=== PATIENT | female | born 1950 | race African-American/Black ===

== ENCOUNTER 2016-05-27 02:50 | Emergency (ER) | payer BC, OTHER ==
--- NOTE | ~2016-05-27 | EKG ---
PATIENT: RILEY SANTOYO UNIT #: [id number] Ventricular Rate: 56 BPM Atrial Rate: 56 BPM P-R Interval: 240 ms QRS Duration: 126 ms Q-T Interval: 428 ms QTC Calculation(Bezet): 413 ms P [place]: 17 degrees Calculated R [place]: 23 degrees Calculated T [place]: 5 degrees Diagnosis Line: Sinus bradycardia with 1st degree A-V block Diagnosis Line: Right bundle branch block with repolarization Diagnosis Line: abnormality Diagnosis Line: Abnormal ECG Diagnosis Line: No previous ECGs available Diagnosis Line: Confirmed by CONNIE REDMAN MD ([id number]) on 05/29/2016 Diagnosis Line: 10:49:36 PM INTERPRETING MD: ЮЛИЯ MORALES
--- NOTE | ~2016-05-27 | CT2 ---
[facility] A Service of [facility] RADIOLOGY TEXT RESULTS PATIENT: RILEY SANTOYO LOCATION: [facility] : 48 UNIT #: [id number] AGE: [address]: Kati Yadav SEX: F ORDER DR: [id number] [facility] [address] [facility]. [place], [place] [address] [id number] MR#: [id number] Acc #: [id number] NAME: RILEY SANTOYO : 1950 SEX: F STUDY DATE/TIME: 05/27/2016 4:01 UNIT: [facility] ROOM: STUDY DESCRIPTION: CT Abd and Pelv W Cont Attending Physician: Kati Yadav Pa-C Ordering Physician: Kati Yadav Pa-C Primary Care Physician: No Primary Care Physician MEDICAL IMAGING REPORT This report is preliminary unless electronic signature is present EXAM Abdomen and pelvis CT with contrast. DATE OF EXAM 05/27/2016 INDICATION 66-year-old female with stomach pain, abdominal pain left upper quadrant, nausea and vomiting symptoms 2-3 days. Symptoms worsening today. TECHNIQUE Contrast-enhanced abdomen and pelvis CT performed. NOTE: This CT exam was performed with one or more of the following radiation dose reduction techniques: automatic exposure control, adjustment of mA and/or kV according to patient size, and iterative reconstruction. COMPARISON No comparisons. FINDINGS CT ABDOMEN: Included lung bases demonstrate scattered areas of atelectasis and scarring. No effusion. Aorta demonstrates no aneurysm or dissection. Spleen, adrenal glands, pancreas and gallbladder unremarkable. There is fatty infiltration of the liver. Kidneys demonstrate atrophy, but no acute inflammatory change. There is an incidental tiny cyst in the left kidney. CT PELVIS: Bladder unremarkable. No drainable fluid collection in the pelvis or adnexal mass. There is intermittent diverticulosis. Moderate stool burden in the colon. Appendix normal. Inguinal canals unremarkable. There is no suspicious bone lesion. Minimal retrograde listhesis of L5, grade 1 in degree. [facility] A Service of [facility] RADIOLOGY TEXT RESULTS PATIENT: RILEY SANTOYO LOCATION: [facility] : 48 UNIT #: [id number] AGE: [address]: Kati Yadav SEX: F ORDER DR: IMPRESSION 1. Negative contrast-enhanced abdomen and pelvis CT. The appendix is normal. No bowel obstruction, drainable fluid collection or focal area of inflammatory change. 2. There is incidental diverticulosis and fatty infiltration of the liver. 3. Incidental left renal cyst. Dictated by... Robson Pineda M.D. THIS IS AN ELECTRONICALLY VERIFIED REPORT Robson Pineda M.D. at 05/27/2016 10:13 PM Lily TD: 05/27/2016 15:16 JOB #: [id number] MEDICAL IMAGING REPORT Page 1 of 1 COPY
[2016-05-27 02:45] LABS: URINE SOURCE CLEAN CATCH
[2016-05-27 02:48] LABS: POC - CKMB <1.0 ng/mL (0.0-7.9); POC - TROPONIN <0.05 ng/mL (<=0.05)
[2016-05-27 02:49] LABS: BASOPHIL% 0.6 % (0-2.5); EOSINOPHIL# 0.2 X10e3 (0-0.7); EOSINOPHIL% 2.1 % (0.0-7.0); HEMATOCRIT 40.9 % (35.0-45.0); HEMOGLOBIN 13.6 gm/dL (12.0-16.0); LYMPHOCYTE# 2.7 X10e3 (1.0-3.5); LYMPHOCYTE% 37.7 % (17.0-45.0); MEAN CELL VOLUME 87.6 FL (83-96); MEAN CORPUSCULAR HEMOGLOBIN 29.1 PG (28-34); MEAN CORPUSCULAR HGB CONC 33.2 g/dL (30-36); MEAN PLATELET VOLUME 7.7 FL (6.5-11.5); MONOCYTE# 0.7 X10e3 (0-1.0); MONOCYTE% 10.2 % (3.0-12.0); NEUTROPHIL# 3.6 X10e3 (1.5-7.1); NEUTROPHIL% 49.4 % (40-75); PLATELET COUNT 267 X10e3 (140-420); RED BLOOD COUNT 4.66 X10e (3.90-5.30); RED CELL DISTRIBUTION WIDTH 13.9 % (11.0-15.5); WHITE BLOOD COUNT 7.3 X10e3 (4.0-10.5)
[2016-05-27 02:51] LABS: URINE APPEARANCE CLEAR; URINE BILIRUBIN NEG (NEG); URINE BLOOD 1+ (NEG); URINE COLOR YELLOW; URINE GLUCOSE NEG (NEG); URINE KETONE NEG (NEG); URINE LEUKOCYTE ESTERASE NEG (NEG); URINE NITRATE NEG (NEG); URINE PROTEIN NEG (NEG); URINE SPECIFIC GRAVITY 1.006 (1.003-1.035); URINE UROBILINOGEN 0.2 MG/DL (NEG)
[2016-05-27 02:53] LABS: DIFF IND NO
[2016-05-27 02:54] LABS: URINE BACTERIA AUWI NEG (NEGATIVE); URINE SQUAMOUS EPITHELIAL CELL NONE SEEN /[HPF]; UWBCS1 AUWI 0-2 (0-5)
[2016-05-27 02:56] LABS: CULTURE INDICATED? NO
[2016-05-27 03:13] LABS: ALBUMIN SERUM 3.9 g/dL (3.5-5.0); BILIRUBIN,TOTAL 0.2 mg/dL (0.2-2.0); BUN/CREATININE RATIO 28.57; CALCIUM SERUM 9.4 mg/dL (8.4-10.2); CREATININE SERUM 0.7 mg/dL (0.6-1.4); GLOM FILT RATE Estimated 103.2 mL/min (>60); POTASSIUM 3.8 mmol/L (3.5-5.1); PROTEIN TOTAL SERUM 7.2 g/dL (6.0-8.3)
[2016-05-27 03:14] LABS: BILIRUBIN, DIRECT 0.1 mg/dL (0.0-0.2); BILIRUBIN,INDIRECT 0.1 mg/dL (0.0-0.9)
== END 2016-05-27 05:15 | disposition home or self-care (01) ==
LOC: CED 02:50
PROVIDERS: Physician Assistant Medical
DX: R10.13 Epigastric pain (principal); Z98.890 Other specified postprocedural states
CPT/HCPCS: 36415; 74177; 80048; 80076; 81003; 82150; 82553; 83690; 84484; 85025; 93005; 99284; Q9967

== ENCOUNTER 2016-06-24 17:49 | Inpatient (IN) | payer MEDICAID ==
--- NOTE | ~2016-06-24 | DS ---
Unit #: [id number] #: [id number] Patient: RILEY MAJOR [id number] [address] [place], [place] [address] [id number] I MR#: [id number] NAME: RILEY MAJOR ROOM: 56 Age: 66 Sex: F Admission Date: 06/24/2016 : 1950 Discharge Date: 06/27/2016 Attending Physician: Fiona Hawthorne M.D. Primary Care Physician: No Primary Care Physician DISCHARGE SUMMARY PRINCIPAL DIAGNOSES 1. Hemoptysis likely secondary to #2. 2. Acute bronchitis with Gram-positive cocci. Culture is currently pending. 3. Mild protein malnutrition. 4. Hyperglycemia with normal hemoglobin A1C of 5.5. 5. Abnormal thoracic and spine sternal lesions with pending workup. 6. History of positive PPD. 7. Adjustment disorder. CONSULTANTS 1. Dr. Kang, pulmonology. 2. Dr. De, oncology. 3. Dr. Dumont, psychiatry. PROCEDURES 1. Bronchoscopy on June 26, 2016 with no evidence of endobronchial lesion. No evidence of mass. Sputum is currently growing Gram-positive cocci. 2. Chest x-ray on June 24, 2016 with moderate lung volumes. A 1.8 cm calcific density in the left lower neck noted. 3. CT angiogram of the chest on June 24, 2016 which is negative for pulmonary embolism. Moderate cardiomegaly noted. Lucent lesions within the thoracic spine and sternum. 4. Two-dimensional echocardiogram on June 25, 2016 with ejection fraction of 55% to 60%. Grade 1 diastolic dysfunction noted. Mild mitral regurgitation noted. Normal right ventricular systolic pressure. CLINICAL HISTORY AND HOSPITAL COURSE Ms. Major is a nice 66-year-old female who speaks Kyrgyz, who presents to the emergency department after a single episode of hemoptysis. Please refer to H and P for further details. CT scan of the chest did not reveal any PE, nor did it reveal any infiltrate. There is also some concern that patient was expressing suicidality in the emergency department via the park maintenance technician and she was subsequently admitted. In regard to the patient's hemoptysis, she has had no further episodes during hospitalization. Dr. Kang was consulted and patient underwent bronchoscopy which was essentially negative. Gram stain from bronchoscopy is currently growing Gram-positive cocci in pairs and chains and thus I am going to treat her with five days of Omnicef. I will follow up this culture following discharge. Unit #: [id number] #: [id number] Patient: NATANAELRILEY In regard to the patient's suicidal ideation, Dr. Dumont was consulted. Patient briefly had a sitter however she denies she was ever suicidal. She [place]. She denies any significant depression and definitely denies any suicidality. Sitter has been discontinued and she will be continued on medications for a short term. CT scan revealed questionable lesions of the spine. Dr. De was consulted. [place] and lambda light chain evaluation is currently pending. I will follow up this as an outpatient as well. However it is not felt that patient has underlying metastatic disease or multiple myeloma. This has all been discussed with the patient who expressed her understanding and she will be discharged home later today. DISCHARGE CONDITION Stable. DISCHARGE STATUS Discharge to home. DISCHARGE MEDICATIONS 1. Celexa 20 mg p.o. daily with one refill. 2. Trazodone 50 mg q.h.s. for one month. 3. Omnicef 200 mg one b.i.d. for five days. DISCHARGE INSTRUCTIONS 1. Patient was instructed to follow a heart healthy diet. 2. She can increase her activity as tolerated. FOLLOWUP Patient will follow up with her primary care provider in approximately one month. Time spent on discharge, 32 minutes. Dictated by... Fiona Hawthorne M.D. Crow/criss TD: 06/27/2016 20:14 JOB #: [id number] Unit #: [id number] #: [id number] Patient: NATANAELRILEY DISCHARGE SUMMARY Page 1 of 1 X Fiona Hawthorne MD X DISCHARGE SUMMARY
--- NOTE | ~2016-06-24 | OR ---
Unit #: [id number] #: [id number] Patient: RILEY SANTOYO [id number] [address] [address] [id number] I MR#: [id number] NAME: RILEY SANTOYO ROOM: 563 Date of Procedure: Admission Date: 06/24/2016 Surgeon: Fani Kang M.D. : 1950 Attending Physician: Fiona Hawthorne M.D. Primary Care Physician: No Primary Care Physician PROCEDURE OPERATIVE NOTE PROCEDURE PERFORMED Diagnostic bronchoscopy. INDICATIONS Hemoptysis. PREPROCEDURE DIAGNOSIS Hemoptysis. POSTPROCEDURE DIAGNOSIS Pneumonia. DETAIL OF PROCEDURE After taking consent from the patient explaining risks and benefits, patient placed in a proper position. Bronchoscope introduced through the oral cavity. Vocal cords appeared to be symmetrically moving toward the midline. Trachea was normal. Raine was sharp. We examined right upper, right middle, right lower lobe, left upper lobe, lingula, and left lower lobe. No endobronchial lesions were found. There were thick mucoid secretions in both lungs which were therapeutically suctioned. Then, we did a bronchoalveolar lavage in the right lower lobe area with 100 mL saline in and 20 mL back. Patient tolerated procedure very well. No complications happened. Dictated by... Lincoln Multani TD: 06/27/2016 12:46 JOB #: [id number] Unit #: [id number] #: [id number] Patient: RILEY SANTOYO PROCEDURE OPERATIVE NOTE Page 1 of 1 X Fani Kang MD PROCEDURE OPERATIVE NOTE
--- NOTE | ~2016-06-24 | CT16 ---
[facility] A Service of [facility] RADIOLOGY TEXT RESULTS PATIENT: RILEY SANTOYO LOCATION: [place] [address] : [birth year] UNIT #: [id number] AGE: [address]: Jose Eduardo Hill MD SEX: F ORDER DR: [id number] [facility] [address] [facility]. [place], [place] [address] [id number] I MR#: [id number] Acc #: [id number] NAME: RILEY SANTOYO : 1950 SEX: F STUDY DATE/TIME: 06/24/2016 19:11 UNIT: CEDOF ROOM: 16738 STUDY DESCRIPTION: CT Angio Chest for PE Attending Physician: Marisol Dickey M.D. Ordering Physician: Chandra Keita D.O. Primary Care Physician: No Primary Care Physician MEDICAL IMAGING REPORT This report is preliminary unless electronic signature is present EXAM CT chest, PE protocol. HISTORY Shortness of air, cough, hemoptysis this morning. TECHNIQUE NOTE: This CT exam was performed with one or more of the following radiation dose reduction techniques: automatic exposure control, adjustment of mA and/or kV according to patient size, and iterative reconstruction. FINDINGS Axial images performed through the chest following IV contrast. 3-D coronal and sagittal reconstructed images reviewed at a workstation. Pulmonary parenchyma unremarkable. No effusions. No evidence of pulmonary embolus. Mild cardiomegaly. Minimal pericardial effusion. No significant adenopathy. There is an apparent persistent left superior vena cava. Aorta is upper limits of normal. Upper abdomen unremarkable. Thoracic inlet remarkable for left thyroid calcifications. These represent dense benign type calcifications and may represent calcified adenoma. There are multiple lucent lesions within the thoracic spine, possibly within the sternum, could represent metastatic disease or myeloma. IMPRESSION 1. No acute intrathoracic abnormality identified. No evidence of pulmonary embolus. 2. Moderate cardiomegaly with a minimal pericardial effusion. 3. Several lucent lesions within the thoracic spine and also within the sternum, nonspecific, but does raise a concern for either metastatic disease or myeloma. Further medical evaluation workup may be warranted. [facility] A Service of [facility] RADIOLOGY TEXT RESULTS PATIENT: RILEY SANTOYO LOCATION: [facility] 563-01 : 46 UNIT #: [id number] AGE: [address]: Jose Eduardo Hill MD SEX: F ORDER DR: 4. Dense calcifications within the left lobe of the thyroid gland most compatible with a benign process. 5. Persistent left superior vena cava. Normal anatomic variant. Dictated by... Armando Cole M.D. THIS IS AN ELECTRONICALLY VERIFIED REPORT Armando Cole M.D. at 06/25/2016 2:05 PM Marivel TD: 06/24/2016 21:46 JOB #: [id number] MEDICAL IMAGING REPORT Page 1 of 1 COPY
--- NOTE | ~2016-06-24 | HP ---
Unit #: [id number] #: [id number] Patient: RILEY SANTOYO [id number] [place] [address] [facility]. [place], [place] [address] [id number] I MR#: [id number] NAME: RILEY SANTOYO ROOM: [facility] Age: 66 Sex: F Admission Date: 06/24/2016 : 1950 Attending Physician: Jose Eduardo Hill M.D. Primary Care Physician: Primary Care Physician No HISTORY AND PHYSICAL CHIEF COMPLAINT Hemoptysis. HISTORY OF PRESENT ILLNESS This is a 66-year-old female, from [place]. She came to the [facility] in November of last year. She has an unremarkable past medical history. She does not speak Salvadorean. History is obtained through the spanish interpreter/translator. She came to the emergency room with the chief complaint of having blood in the sputum, spitting up blood which happened today for the first time, amount was moderate and she came to the emergency room. On workup she has abnormal D-dimer. She underwent CT chest with PE protocol which was negative for PE but shows moderate cardiomegaly, minimal pericardial effusion, and there are several lesions in the spine and sternum concerning for metastasis disease vs myeloma. She is telling me that she feels depressed. She thinks that she has nobody to take care of her she does not deserve to live more, that is why she gave command to the spanish interpreter/translator. She says she loss of appetite, she has loss of weight but she does not know how much she weighed in the last six months. She is a very poor historian, also. Besides that she denies chest pain. She denies cough. She denied sweats, nausea, vomiting, abdominal pain, or any other complaint. PAST MEDICAL HISTORY Unremarkable. FAMILY HISTORY Positive TB test which was treated. SOCIAL HISTORY She said she use to smoke half to one pack daily. She smoked for ten years which she quit ten years ago. She denies alcohol. She denies illicit drug use. PAST SURGICAL HISTORY No surgical history. ALLERGIES No known drug allergies. HOME MEDICATIONS She does not take any medication at home. REVIEW OF SYSTEMS Negative except for history of present illness. Unit #: [id number] #: [id number] Patient: RILEY SANTOYO PHYSICAL EXAMINATION GENERAL: Middle-aged female lying in the bed comfortably, currently not in any distress. She is alert, awake, and oriented x3, comfortable, not in any distress. VITAL SIGNS: Current vitals are the following, temperature 98.5, heart rate 75, respiratory rate 12, and blood pressure 134/66, and oxygen 94% on room air. HEENT EXAMINATION: Eyes: Pupils equal reactive to light and accommodation. Head: Normocephalic and atraumatic. NECK: Supple. No jugular venous distention. HEART: S1 and S2, regular rate and rhythm. ABDOMEN: Soft, nontender, and nondistended. Bowel sounds are positive. EXTREMITIES: Inspection normal. No cyanosis, no clubbing, and no edema. NEUROLOGIC: No focal neurologic deficit. DIAGNOSTIC STUDIES LABORATORY: Laboratory workup is the following, her CBC shows white count 7, hemoglobin 14, hematocrit 42, platelets 245. INR is 1. BMP, sodium 140, potassium 3.7, chloride 108, glucose 22, BUN 123, creatinine 0.9, LFT within normal limits. Acetaminophen is less than 10, salicylate is less than 4, alcohol less than 5. D-dimer 551. Urine toxicology is negative. Troponin less than 0.05, troponin less than 0.05. IMAGING: Chest x-ray shows no infiltrate, no effusion, 1.8 cm calcified density, project overlying the lower left neck, could represent calcified thyroid lesions. CT chest, PE protocol, negative for pulmonary embolism, moderate cardiomegaly, minimal pericardial effusion, several lesions in thoracic spine and sternum. CARDIOVASCULAR: EKG shows right bundle branch block. ASSESSMENT/PLAN 1. Hemoptysis, will admit the patient and monitor and will ask pulmonary to evaluate. 2. Suicidal ideation, will keep the patient on one-to-one for 72 hour hold, ask psychiatry, Dr. Dumont to evaluate. 3. Abnormal D-dimer, negative CT chest PE protocol. 4. Moderate cardiomegaly/minimal pericardial effusion, will do the 2D echocardiogram. 5. Several lesions in the thoracic spine and sternum concerning for metastatic disease vs myeloma, ask oncology to evaluate. 6. History of positive PPD which was treated in the past. 7. DVT prophylaxis will place the patient on SCDs. Dictated by Lincoln Felton/yana TD: 06/25/2016 07:50 JOB #: [id number] Unit #: [id number] #: [id number] Patient: RILEY SANTOYO HISTORY AND PHYSICAL Page 1 of 1 X X HISTORY AND PHYSICAL
--- NOTE | ~2016-06-24 | CO ---
Unit #: [id number] #: [id number] Patient: RILEY SANTOYO [id number] [address] [address] [id number] I MR#: [id number] NAME: RILEY SANTOYO ROOM: 563 Age: 66 Sex: F Admission Date: 06/24/2016 : 1950 Attending Physician: Fiona Hawthorne M.D. Primary Care Physician: Primary Care Physician No Consultation Date: 06/27/2016 CONSULTATION REPORT REASON FOR CONSULTATION Followup. DISCUSSION Ms. Vences is a 66-year-old female, seen in room 563, bed 1 on 06/27/2016 at [facility]. The patient was pleasant and cooperative, interviewed with the help of ward nurse phone. The patient denied any complaint. Reports medication helping her. REVIEW OF SYSTEMS Complete review of systems is unremarkable. MENTAL STATUS EXAMINATION General appearance, the patient dressed casually. Attention span and concentration, fair. Speech, regular rate. Oriented in place. Mood and affect, labile. Thought process, coherent. Thought content, denied any thoughts of harming self or others. Denied any psychotic symptom. Recent and remote memory, fair. Language, fair. Fund of knowledge, fair. Insight and judgment, fair. DIAGNOSES Psychiatric: Major depressive disorder, recurrent, F33.2. Secondary diagnosis: Deferred. ASSESSMENT/PLAN 1. Supportive psychotherapy and psychoeducation provided to the patient. 2. Advised to continue with current medication. If needed, consider further adjustment of medication. Recommending at this time to discontinue sitter and 72-hour hold at this time. Dictated by... Lincoln Montero/andre TD: 06/28/2016 01:20 JOB #: [id number] Unit #: [id number] #: [id number] Patient: RILEY SANTOYO CONSULTATION REPORT Page 1 of 1 X Skip Dumont MD CONSULTATION REPORT
--- NOTE | ~2016-06-24 | CO ---
Unit #: [id number] #: [id number] Patient: RILEY SANTOYO [id number] [address] [place], [place] [address] [id number] I MR#: [id number] NAME: RILEY SANTOYO ROOM: 3 Age: 66 Sex: F Admission Date: 06/24/2016 : 1950 Attending Physician: Jose Eduardo Hill M.D. Primary Care Physician: Primary Care Physician No CONSULTATION REPORT REASON FOR CONSULTATION Cough and hemoptysis. CHIEF COMPLAINT Shortness of breath. HISTORY OF PRESENT ILLNESS The patient presented to the emergency room with complaint of one day of cough, shortness of breath, with hemoptysis, denies any headache, blurry vision, or chest pain. PAST MEDICAL HISTORY Tuberculosis, treated in the past. SOCIAL HISTORY Nonsmoker and no alcohol or drug abuse. FAMILY HISTORY None as per record. PHYSICAL EXAMINATION VITAL SIGNS: Temperature 98, pulse 87, respiration 12, and blood pressure 137/80. NEUROLOGIC: Awake, alert, and oriented. No neurologic deficit. HEENT: PERRLA. NECK: Supple. No jugular venous distention. CHEST: Bilateral air entry. Bilateral mild rhonchi. GI: Nontender. Soft. Bowel sounds are positive. EXTREMITIES: No edema. DIAGNOSTIC STUDIES Labs and imaging has been reviewed. MEDICATIONS As per MAR, has been reviewed. ASSESSMENT AND PLAN 1. Hemoptysis. 2. History of tuberculosis. 3. Questionable metastatic spine lesions. Plan is to admit the patient and continue IV antibiotics, oxygen, bronchodilator, and will need bronchoscopy, order sputum for AFB, and sputum cultures and sensitivity. Continue IV antibiotics. Please see Unit #: [id number] #: [id number] Patient: RILEY SANTOYO orders for treatment and plan. Thank you very much for this consultation. Dictated by... Lincoln Multani TD: 06/25/2016 09:16 JOB #: [id number] CONSULTATION REPORT Page 1 of 1 X Fani Kang MD X CONSULTATION REPORT
--- NOTE | ~2016-06-24 | CO ---
Unit #: [id number] #: [id number] Patient: VANGIE MAJOR [id number] [facility] [address] [facility]. [place], [place] [address] [id number] MR#: [id number] NAME: VANGIE MAJOR ROOM: 563 Age: 66 Sex: F Admission Date: 06/24/2016 : 1950 Attending Physician: Fiona Hawthorne M.D. Primary Care Physician: No Primary Care Physician Consultation Date: 06/25/2016 CONSULTATION REPORT REASON FOR CONSULTATION Depression, suicidal ideation. HISTORY OF PRESENT ILLNESS Ms. Vangie Major is a 66-year-old -[place] female seen in room 563, bed 1, at [facility] on 06/25/2016. The patient had a sitter. The patient was in isolation due to possible diagnosis of tuberculosis. The patient speaks language of Khmer. The patient was interviewed with the help of an senior asp net developer. The patient was pleasant and cooperative during the interview. Patient reported she made comments about harming herself but able to contract for safety. The patient reported feeling sad, depressed, lives with her friends. Denied any use of drugs or alcohol. Patient denied taking any medications for depression. Patient was able to contact for safety. At this time denied any psychotic symptoms but admitted feeling sad, depressed, anxious for a long period of time. Patient denied any history of previous (1) . PAST PSYCHIATRIC HISTORY Unremarkable for any previous treatment. MEDICAL HISTORY Medical history is remarkable for a possible tuberculosis and moderate cardiomegaly, pericardial effusion. MEDICATIONS Please refer to MAR. FAMILY HISTORY AND SOCIAL HISTORY The patient lives with a friend and no history of any abuse. No history of any substance abuse. REVIEW OF SYSTEMS Complete review of systems is remarkable for spitting blood, anxiety and depression. MENTAL STATUS EXAMINATION VITAL SIGNS: 97.8, 62, 18, 116/31, on saturation 99% GENERAL APPEARANCE: The patient is dressed in hospital attire. Cooperative. ATTENTION SPAN AND CONCENTRATION: Fair. SPEECH: Was a regular rate. Oriented to time, place and person. MOOD AND AFFECT: Sad and dysphoric. Unit #: [id number] #: [id number] Patient: VANGIE MAJOR THOUGHT PROCESS: Coherent. THOUGHT CONTENT: Patient denied any thoughts of harming self or other but reported making comments of feeling sad and depressed. Denied any psychotic symptoms. RECENT AND REMOTE MEMORY: Fair. LANGUAGE: Intact. FUND OF KNOWLEDGE: Fair. INSIGHT AND JUDGMENT: Fair to slightly impaired. DIAGNOSTIC STUDIES Psychiatric: Major depressive disorder, recurrent, F33.2. Secondary diagnosis: Deferred. Medical diagnosis: Please refer to H and P. Stressors: Psychosocial stressor. ASSESSMENT AND PLAN 1. Supportive psychotherapy and psychoeducation provided to the patient. 2. Educated about benefits and side effects of medication and course and prognosis advised. 3. Advised to start patient on Celexa 20 mg daily and trazodone 50 mg at bedtime for sleep. (2) depression. We will continue to follow. Please feel free to call if any questions, telephone [phone]. 1. Dictated by... Lincoln Montero/delaney TD: 06/27/2016 08:09 JOB #: [id number] CONSULTATION REPORT Page 1 of 1 X Skip Dumont MD X CONSULTATION REPORT
--- NOTE | ~2016-06-24 | EKG ---
PATIENT: RILEY SANTOYO UNIT #: [id number] Ventricular Rate: 72 BPM Atrial Rate: 72 BPM QRS Duration: 142 ms Q-T Interval: 408 ms QTC Calculation(Bezet): 446 ms Calculated R [place]: 29 degrees Calculated T [place]: 11 degrees Diagnosis Line: Sinus rhythm with first degree AV block Diagnosis Line: Right bundle branch block Diagnosis Line: Abnormal ECG Diagnosis Line: When compared with ECG of 27-MAY-2016 02:35, Diagnosis Line: [place] interval has prolonged significantly Diagnosis Line: Confirmed by CELESTINO TONY MD ([id number]) on Diagnosis Line: 06/25/2016 7:07:10 AM INTERPRETING MD: BHUPINDER
--- NOTE | ~2016-06-24 | CO ---
Unit #: [id number] #: [id number] Patient: RILEY MAJOR [id number] [address] [place], [place] [address] [id number] MR#: [id number] NAME: RILEY MAJOR ROOM: [facility] Age: 66 Sex: F Admission Date: 06/24/2016 : 1950 Attending Physician: Jose Eduardo Hill M.D. Primary Care Physician: Primary Care Physician No CONSULTATION REPORT REASON FOR CONSULTATION Lucent lesions in the bone on the CT scan. REASON FOR ADMISSION Hemoptysis. HISTORY OF PRESENT ILLNESS Ms. Major is a 66-year-old lady from [place], who moved to [facility] in November of last year. She does not speak any Togolese. Her [place] language is Greek. I spoke to the patient with the help of motor vehicle parts interpreter over the phone. The patient is now admitted to the hospital with hemoptysis. It was moderate. This is the first time she has suffered this. She was found to have abnormal D-dimer because of which she underwent CT scan of the chest with PE protocol, which was negative for pulmonary embolism. It showed moderate cardiomegaly and minimal pericardial effusion. On the bone windows, she was found to have a lucent lesions in the spine and the sternum, which are concerning for possible metastatic disease versus myeloma. Because of which, the patient is being referred to Hematology/Oncology. The patient has been seen by Dr. Kang of Pulmonary Medicine and according to his note, the patient has previous history of tuberculosis, which has been treated in the past. The patient also feels quite depressed because she has no one to take care of her. PAST MEDICAL HISTORY Positive TB, treated in the past. SOCIAL HISTORY The patient does smoke, but she has quit. She used to smoke one pack per day for several years. She denies any alcohol use. PAST SURGICAL HISTORY Negative. ALLERGIES No known drug allergies. HOME MEDICATIONS The patient does not take any home medications. REVIEW OF SYSTEMS Negative except for hemoptysis. CONSTITUTIONAL: Patient denies fevers, chills, sweats, and weight changes. EYES: Patient denies any visual symptoms. Unit #: [id number] #: [id number] Patient: RILEY MAOJR EARS, NOSE, AND THROAT: No difficulties with hearing. No symptoms of rhinitis or sore throat. CARDIOVASCULAR: Patient denies chest pains, palpitations, orthopnea, or paroxysmal nocturnal dyspnea. RESPIRATORY: No dyspnea on exertion, no wheezing or cough. GASTROINTESTINAL: No nausea, vomiting, diarrhea, constipation, abdominal pain, hematochezia or melena. GENITOURINARY: No urinary hesitancy or dribbling. No nocturia or urinary frequency. No abnormal urethral discharge. MUSCULOSKELETAL: No myalgias or arthralgias. NEUROLOGIC: No chronic headaches, no seizures. Patient denies numbness, tingling or weakness. PSYCHIATRIC: Patient denies problems with mood disturbance. No problems with anxiety. ENDOCRINE: No excessive urination or excessive thirst. DERMATOLOGIC: Patient denies any rashes or skin changes. ALLERGIC/IMMUNOLOGIC: Denies any symptoms. HEMATOLOGIC/LYMPHATIC: Denies any symptoms. PHYSICAL EXAMINATION VITAL SIGNS: The patient is afebrile. Temperature 98.5, pulse 75, respiration 12, blood pressure 134/66, oxygen saturation 94%. GENERAL: Patient appears well developed, well nourished, and healthy. Personality: Pleasant and cooperative. Mental status: Alert and oriented. Stature: ECOG performance score 0. HEENT: Examination of head, eyes, ears, nose and throat is unremarkable. HEMATOLOGIC/LYMPHATIC: There is no palpable adenopathy in the inguinal, axillary or cervical areas. CARDIOVASCULAR: S1 and S2 regular. Normal rate without any murmurs or gallops. RESPIRATORY: Chest symmetrical, normal, breath sounds equal, bilaterally symmetrical. No rales or rhonchi, and no dullness to percussion. ABDOMEN/GASTROINTESTINAL: Abdomen is soft, nontender, and without palpable masses. No hepatosplenomegaly. EXTREMITIES: Peripheral pulses are normal. There is no edema, cyanosis, clubbing or significant varicosities. NEUROLOGICAL: Patient is alert and oriented x3. Cranial nerves II-XII are grossly intact. Motor strength is 5/5 and equal in all four extremities. Deep tendon reflexes are +2/4 and equal bilaterally. MUSCULOSKELETAL: No evidence of joint swelling, bone tenderness or muscle tenderness is appreciable. SKIN: No lesions or rashes. PSYCHIATRIC: No delusions or hallucinations, no loose associations, no flight of ideas, no tangentiality. Affect is appropriate. No psychomotor slowing or agitation. Eye contact is appropriate. DIAGNOSTIC STUDIES LABORATORY RESULTS: Shows hemoglobin of 14, white count 7, platelet count 245. INR 1. Creatinine 0.9. LFTs are within normal limits. Calcium is normal. Total protein and albumin are normal as well. ASSESSMENT AND PLAN Ms. Major is a very pleasant 66-year-old lady, who was admitted to the hospital without significant past medical history. She underwent a CT scan because of hemoptysis. There is no evidence of primary lung cancer. There is no evidence of pulmonary embolism. There were several lucent lesions within the thoracic spine and sternum which are nonspecific, but raises the issue of metastatic disease versus myeloma. On the laboratory Unit #: [id number] #: [id number] Patient: RILEY MAJOR workup, there is nothing to suggest myeloma. She has normal hemoglobin, calcium, and renal function. I should mention that there is a previous CT scan of the abdomen and pelvis, which was just done in 05/2016 when the patient was admitted with abdominal pain, nausea, and vomiting. It was a contrast study. It was completely negative for any abnormalities. At the moment, my suspicion for malignancy is relatively low. I explained this to the patient with the help of an motor vehicle parts interpreter, but we will go ahead and complete the workup for myeloma, I will be checking serum protein electrophoresis with quantitative immunoglobulins and serum lambda and kappa light chains. I will also get tumor markers with CEA and CA 27-29. At the moment, I do not feel strongly for any CT-guided biopsy of those lesions. We will wait for this workup to be completed. I will let to thank Dr. Marisol Dickey for giving us the opportunity to be involved in the care of this pleasant lady. Dictated by... Zay De M.D., Ph.D. NOHELIA/andre TD: 06/26/2016 01:14 JOB #: [id number] CONSULTATION REPORT Page 1 of 1 X X CONSULTATION REPORT
--- NOTE | ~2016-06-24 | CR72 ---
[facility] A Service of [facility] & [facility] RADIOLOGY TEXT RESULTS PATIENT: RILEY SANTOYO LOCATION: [facility] : 46 UNIT #: [id number] AGE: [address]: Chandra Keita DO SEX: F ORDER DR: [id number] [facility] [address] [place], [place] [address] [id number] MR#: [id number] Acc #: [id number] NAME: RILEY SANTOYO : 1950 SEX: F STUDY DATE/TIME: 06/24/2016 16:48 UNIT: [facility] ROOM: STUDY DESCRIPTION: CR Chest Single View Portable Attending Physician: Chandra Keita D.O. Ordering Physician: Chandra Keita D.O. MEDICAL IMAGING REPORT This report is preliminary unless electronic signature is present EXAM Portable chest HISTORY Coughing up blood, onset today. FINDINGS Portable view of the chest demonstrates moderate lung volumes satisfactory technique. No infiltrates or effusions. Heart, mediastinum, great vessels unremarkable. 1.8 cm calcific density projects overlying the lower left neck and probably represents a calcified thyroid lesion. Mild cardiomegaly and mild aortic atherosclerotic changes. No effusion or pneumothorax. Dictated by... Armando Cole M.D. THIS IS AN ELECTRONICALLY VERIFIED REPORT Armando Cole M.D. at 06/24/2016 8:37 PM JILLIAN/freddie TD: 06/24/2016 19:33 JOB #: [id number] MEDICAL IMAGING REPORT Page 1 of 1 COPY
[2016-06-24 17:06] LABS: BASOPHIL% 0.7 % (0-2.5); EOSINOPHIL# 0.1 X10e3 (0-0.7); EOSINOPHIL% 1.3 % (0.0-7.0); LYMPHOCYTE# 2.1 X10e3 (1.0-3.5); LYMPHOCYTE% 29.5 % (17.0-45.0); MEAN CELL VOLUME 87.2 FL (83-96); MEAN CORPUSCULAR HEMOGLOBIN 29.1 PG (28-34); MEAN CORPUSCULAR HGB CONC 33.4 g/dL (30-36); MEAN PLATELET VOLUME 7.5 FL (6.5-11.5); MONOCYTE# 0.6 X10e3 (0-1.0); MONOCYTE% 7.9 % (3.0-12.0); NEUTROPHIL# 4.4 X10e3 (1.5-7.1); NEUTROPHIL% 60.6 % (40-75); PLATELET COUNT 245 X10e3 (140-420); RED BLOOD COUNT 4.82 X10e (3.90-5.30); RED CELL DISTRIBUTION WIDTH 13.3 % (11.0-15.5); WHITE BLOOD COUNT 7.2 X10e3 (4.0-10.5)
[2016-06-24 17:24] LABS: DIFF IND NO; PROTHROMBIN TIME (PATIENT) 10.6 SECONDS (9.6-11.5)
[2016-06-24 17:29] LABS: ALBUMIN SERUM 3.9 g/dL (3.5-5.0); BILIRUBIN, DIRECT 0.1 mg/dL (0.0-0.2); BILIRUBIN,INDIRECT 0.4 mg/dL (0.0-0.9); BILIRUBIN,TOTAL 0.5 mg/dL (0.2-2.0); BUN/CREATININE RATIO 25.55; CALCIUM SERUM 9.2 mg/dL (8.4-10.2); CREATININE SERUM 0.9 mg/dL (0.6-1.4); GLOM FILT RATE Estimated 76.2 mL/min (>60); POTASSIUM 3.7 mmol/L (3.5-5.1)
[2016-06-24 17:31] LABS: SALICYLATE <4.0 mg/dL
[2016-06-24 17:32] LABS: ACETAMINOPHEN <10 ug/mL; ALCOHOL BLOOD <5 mg/dL ([0,])
[2016-06-24 19:11] LABS: AMPHETAMINE NEG (NEG); BARBITURATES NEG (NEG); BENZODIAZEPINES NEG (NEG); COCAINE NEG (NEG); MARIJUANA NEG (NEG); OPIATES NEG (NEG); TRICYCLIC ANTIDEPRESSANTS NEG (NEG); U METHADONE NEG (NEG)
[2016-06-24 19:17] LABS: POC - CKMB <1.0 ng/mL (0.0-7.9); POC - TROPONIN <0.05 ng/mL (<=0.05)
[2016-06-24 19:18] LABS: POC - CKMB <1.0 ng/mL (0.0-7.9); POC - TROPONIN <0.05 ng/mL (<=0.05)
[2016-06-26 06:33] LABS: INFLUENZA A NEG (NEG); INFLUENZA B NEG (NEG)
[2016-06-26 17:47] LABS: BODY FLUID APPEARANCE CLOUDY; BODY FLUID SOURCE BRONCHIAL LAVAGE
[2016-06-27 06:34] LABS: HEMATOCRIT 41.6 % (35.0-45.0); HEMOGLOBIN 13.7 gm/dL (12.0-16.0); MEAN CELL VOLUME 87.8 FL (83-96); MEAN CORPUSCULAR HEMOGLOBIN 28.8 PG (28-34); MEAN CORPUSCULAR HGB CONC 32.8 g/dL (30-36); MEAN PLATELET VOLUME 7.8 FL (6.5-11.5); RED BLOOD COUNT 4.74 X10e (3.90-5.30); RED CELL DISTRIBUTION WIDTH 13.3 % (11.0-15.5); WHITE BLOOD COUNT 6.8 X10e3 (4.0-10.5)
[2016-06-27 07:06] LABS: ALBUMIN SERUM 3.4 g/dL (3.5-5.0); BILIRUBIN,TOTAL 0.5 mg/dL (0.2-2.0); BUN/CREATININE RATIO 26.66; CALCIUM SERUM 8.6 mg/dL (8.4-10.2); CREATININE SERUM 0.9 mg/dL (0.6-1.4); GLOM FILT RATE Estimated 76.2 mL/min (>60); POTASSIUM 3.8 mmol/L (3.5-5.1); PROTEIN TOTAL SERUM 6.5 g/dL (6.0-8.3)
[2016-06-27] MEDS ORDERED: DESYREL50 MG PO (09:57)
[2016-06-27] MEDS ORDERED: CELEXA20 M1 PO (09:57)
[2016-06-27] MEDS ORDERED: OMNICEF PO (09:59)
[2016-06-27 16:08] LABS: IMMUNOGLOBULIN A 128 mg/dL (81-463); IMMUNOGLOBULIN G 1434 mg/dL (694-1618); IMMUNOGLOBULIN M 167 mg/dL (48-271)
[2016-06-29 03:44] LABS: SPE A1GLOB (PNL) 0.3 g/dL (0.2-0.3); SPE A2GLOB (PNL) 0.7 g/dL (0.5-0.9); SPE ALB (PNL) 3.9 g/dL (3.8-4.8); SPE BETA 1 GLOBULIN 0.4 g/dL (0.4-0.6); SPE BETA 2 GLOBULIN 0.3 g/dL (0.2-0.5); SPE GAMMA (PNL) 1.3 g/dL (0.8-1.7); SPETP (PNL) 6.9 g/dL (6.1-8.1)
== END 2016-06-27 14:40 | disposition home or self-care (01) | DRG 167 ==
LOC: CED 17:49 → CEDOF 20:30 → C5C 23:42
PROVIDERS: Emergency Medicine; Internal Medicine; Internal Medicine Hematology; Internal Medicine Hematology & Oncology
PROC: B246ZZZ Ultrasonography of Right and Left Heart (ICD-10-PCS; 2016-06-25)
PROC: 0B9F8ZX Drainage of Right Lower Lung Lobe, Via Natural or Artificial Opening Endoscopic, Diagnostic (ICD-10-PCS; principal; 2016-06-26 14:49)
PROC: 3E0234Z Introduction of Serum, Toxoid and Vaccine into Muscle, Percutaneous Approach (ICD-10-PCS; 2016-06-27)
DX: J20.2 Acute bronchitis due to streptococcus (principal); R04.2 Hemoptysis; E46 Unspecified protein-calorie malnutrition; F33.2 Major depressive disorder, recurrent severe without psychotic features; I31.3 Pericardial effusion (noninflammatory); Z68.26 Body mass index [BMI] 26.0-26.9, adult; R73.9 Hyperglycemia, unspecified; M89.9 Disorder of bone, unspecified; F43.20 Adjustment disorder, unspecified; I51.7 Cardiomegaly; Z87.891 Personal history of nicotine dependence; Z86.11 Personal history of tuberculosis; Z79.899 Other long term (current) drug therapy; Z23 Encounter for immunization
CPT/HCPCS: 36415; 71010; 71275; 80048; 80053; 80076; 80307; 82378; 82553; 82784; 83036; 83880; 83883; 84165; 84443; 84484; 85025; 85027; 85379; 85610; 85730; 86316; 87070; 87102; 87106; 87116; 87205; 87206; 87252; 87254; 87278; 87804; 88108; 88305; 88312; 89051; 93005; 93306; 99285; G0480; J0171; J2250; J3010; Q9967